=== PATIENT | female | born 2000 | race African-American/Black ===

== ENCOUNTER 2020-06-01 21:20 | Emergency (ER) | payer MEDICAID ==
[~2020-06-01] VITALS: Ht 175.3 cm; Wt 76.2 kg
[2020-06-01 21:25] VITALS: BP 118/62
== END 2020-06-01 22:56 | disposition short-term general hospital (02) ==
LOC: ER 21:20
DX: O46.93 Antepartum hemorrhage, unspecified, third trimester (principal); Z3A.28 28 weeks gestation of pregnancy